=== PATIENT | female | born 1985 | race Two or more races ===

== ENCOUNTER 2017-01-11 09:37 | Emergency (ER) | payer MEDICAID ==
[~2017-01-11] VITALS: Ht 160 cm; Wt 54.4 kg
[2017-01-11 10:00] VITALS: BP 108/69
[2017-01-11 10:29] LABS: Urine Bilirubin Negative (Negative); Urine Blood TRACE /uL (Negative); Urine Color Yellow (Yellow); Urine Glucose Normal (Normal); Urine Ketone Negative (Negative); Urine Mucus FEW (None Seen); Urine Nitrite Negative (Negative); Urine RBC 10 /hpf (0 - 4); Urine Squamous Epithelial Cell MOD /hpf (<5); Urine Urobilinogen Normal (Negative); Urine pH 5.5 (5.0-8.0)
== END 2017-01-11 11:36 | disposition home or self-care (01) ==
LOC: ER 09:37
DX: M54.5 Low back pain (principal); N39.0 Urinary tract infection, site not specified; Z88.0 Allergy status to penicillin
CPT/HCPCS: 81001; 81025

== ENCOUNTER 2018-06-07 00:25 | Emergency (ER) | payer MEDICAID ==
[~2018-06-07] VITALS: Ht 160 cm; Wt 60.3 kg
[2018-06-07 01:21] VITALS: BP 111/75
[2018-06-07 01:58] LABS: Basophils # (auto) 0 uL; Basophils % (auto) 0.7 % (0.0-2.0); Eosinophils # (auto) 0.3 uL; Eosinophils % (auto) 5.4 % (0.0-7.0); Hematocrit 37.4 % (36.0-46.0); Hemoglobin 12.6 g/dL (12.2-16.2); Lymphocytes # (auto) 0.8 uL; Lymphocytes % (auto) 13.5 % (10.0-50.0); Mean Corpuscular Hemoglobin 30.8 pg (28.0-32.0); Mean Corpuscular Hgb Conc. 33.8 g/dL (32.0-36.0); Mean Corpuscular Volume 91.2 fL (80.0-100.0); Monocytes # (auto) 0.5 uL; Monocytes % (auto) 8.1 % (0.0-12.0); Neutrophils # (auto) 4.5 uL; Neutrophils % (auto) 72.3 % (37.0-80.0); Platelet Count (auto) 196 10^3/uL (140-450); Red Cell Distribution Width 12.8 % (11.8-14.3); White Blood Cell 6.2 10^3/uL (4.4-10.8)
[2018-06-07 02:13] LABS: Albumin 3.7 g/dL (3.4-5.0); Anion Gap 6 (5-15); Blood Urea Nitrogen 14 mg/dL (7-18); Calcium 8.7 mg/dL (8.5-10.1); Carbon Dioxide 26 mmol/L (21-32); Chloride 110 mmol/L (98-107); Glucose 98 mg/dL (74-106); Potassium 3.8 mmol/L (3.5-5.1); Sodium 142 mmol/L (136-145)
[2018-06-07 02:16] LABS: Amylase 38 U/L (25-115); BUN/Creatinine Ratio 18.2; GFR African American 110 mL/min; GFR Non-African American 91 mL/min; Lipase 112 U/L (73-393)
[2018-06-07 02:22] LABS: Alanine Aminotransferase 15 U/L (13-56); Alkaline Phosphatase 50 U/L (45-117); Aspartate Aminotransferase 8 U/L (15-37); Bilirubin, Total 0.2 mg/dL (0.2-1.0)
== END 2018-06-07 07:15 | disposition left against medical advice (07) ==
LOC: ER 00:25
DX: R10.9 Unspecified abdominal pain (principal); M54.2 Cervicalgia; M54.9 Dorsalgia, unspecified; Z53.21 Procedure and treatment not carried out due to patient leaving prior to being seen by health care provider
CPT/HCPCS: 36415; 80053; 82150; 83690; 84484; 85025

== ENCOUNTER 2022-01-08 06:36 | Emergency (ER) | payer MEDICAID ==
[~2022-01-08] VITALS: Ht 160 cm; Wt 56.8 kg
[2022-01-08 07:35] VITALS: BP 92/48
[2022-01-08] MEDS ORDERED: CLIN300C8 PO (07:36)
[2022-01-08] MEDS ORDERED: IBUP600T27 PO (07:36)
[2022-01-08] MEDS ORDERED: cefTRIAXone SOD 1,000 MG VL IM ONE (07:45)
[2022-01-08] MEDS ORDERED: IBUPROFEN 600 MG TAB PO ONE (07:45)
== END 2022-01-08 08:08 | disposition home or self-care (01) ==
LOC: ER 06:36
DX: K04.7 Periapical abscess without sinus (principal); Z88.0 Allergy status to penicillin
CPT/HCPCS: 96372; 99283; J0696